=== PATIENT | female | born 1960 | race Caucasian/White ===

== ENCOUNTER 2017-02-20 11:58 | Emergency (ER) | payer MEDICAID ==
[~2017-02-20] VITALS: Ht 152.4 cm; Wt 60.0 kg
[2017-02-20] MEDS ORDERED: IBUPROFEN 600MG TABLET PO ONE (16:00)
[2017-02-20 17:08] VITALS: BP 135/57
== END 2017-02-20 17:31 | disposition home or self-care (01) ==
LOC: ER 15:13
DX: M79.1 Myalgia (principal); M25.512 Pain in left shoulder; M19.90 Unspecified osteoarthritis, unspecified site; V49.9XXA Car occupant (driver) (passenger) injured in unspecified traffic accident, initial encounter; Y93.89 Activity, other specified; Y99.8 Other external cause status; Y92.89 Other specified places as the place of occurrence of the external cause
CPT/HCPCS: 73030; 99284